=== PATIENT | female | born 1995 | race African-American/Black ===

== ENCOUNTER 2020-07-24 10:44 | Emergency (ER) | payer OTHER ==
[~2020-07-24 10:44] MED LIST: NAPROXEN500 MG PO
[2020-07-24 12:06] LABS: BILIRUBIN NEGATIVE (NEGATIVE); BLOOD 3+ Ery/uL (NEGATIVE); COLOR YELLOW (YELLOW); GLUCOSE (U) NORMAL (NORMAL); LEUKOCYTES NEGATIVE Leu/uL (NEGATIVE); NITRITE NEGATIVE (NEGATIVE); PROTEIN TRACE (LOW) mg/dL (NEGATIVE); SPECIFIC GRAVITY >=1.030 (1.001-1.030); pH 6.5 (5.0-9.0)
[2020-07-24 12:16] LABS: BACTERIA 1+; URINARY RBC TNTC
[2020-07-24 12:17] LABS: CLARITY SLIGHTLY HAZY (CLEAR)
[2020-07-24] MEDS ORDERED: CYCLOBENZAPRINE10 MG PO (13:34)
[2020-07-24] MEDS ORDERED: MEDROL 4MG DOSEP4 MG PO (13:34)
[2020-07-24] MEDS ORDERED: MOTRIN600 MG PO (13:34)
== END 2020-07-24 13:40 | disposition home or self-care (01) ==
LOC: FER 10:44
PROVIDERS: Internal Medicine
DX: M54.6 Pain in thoracic spine (principal); M54.5 Low back pain; Z88.0 Allergy status to penicillin
CPT/HCPCS: 72072; 72100; 81001; J1885